=== PATIENT | male | born 1990 | race Caucasian/White ===

== ENCOUNTER 2018-04-09 03:42 | Observation (INO) ==
--- NOTE | 2018-04-09 03:52 | ERNOTE ---
Abdominal HPI - Narrative Date of Service: 04/09/18 - General Chief Complaint: Abdominal Pain Time Seen by Provider: 04/09/18 03:48 Source: patient - Immun/Allergies/Home Medications Immunizatons: IMMUNIZATION HX Immunizations Up to Date Yes Allergies/Adverse Reactions: Allergies No Known Allergies Allergy (Verified 04/09/18 07:39) Home Medications: HOME MEDICATIONS NK [No Home Medication] 04/09/18 [Last Taken Unknown] - History of Present Illness Narrative: Patient is a transfer from [facility] with appendicitis. Patient has been sick for 28 hours. Right lower quadrant abdominal pain. CAT scan was performed which demonstrated 11 mm appendicitis transverse diameter great deal of inflammation cannot rule out perforation. Dr. Covington has asked me to assess the patient and inform him when the patient arrived which I have done so. He is asked me to call in the crew Review of Systems - Review of Systems Constitutional: Present: See HPI, recent illness, fatigue, malaise EYE: Present: no symptoms reported ENT: Present: no symptoms reported Respiratory: Present: no symptoms reported Cardiology: Present: no symptoms reported Gastrointestinal/Abdominal: Present: nausea, abdominal pain, eating less All Other Systems: All systems neg except as marked - Patient's Past Medical History Patient History - Medical: No pertinent hx Patient History - Cardiac/Respiratory: No pertinent hx Patient History - Cancer: No Hx of Cancer Patient History - Surgical Procedures: T & A Patient History - Other: None - Family History Mother Family History - Medical: No pertinent hx Family History - Cardiac/Respiratory: Other Family History - Cancer: No pertinent family hx Father Family History - Medical: No pertinent hx Family History - Cardiac/Respiratory: Hypertension Family History - Cancer: No pertinent family hx Brother Family History - Medical: No pertinent hx Family History - Cardiac/Respiratory: No pertinent hx Family History - Cancer: No pertinent family hx Sister Family History - Medical: No pertinent hx Family History - Cardiac/Respiratory: No pertinent hx Family History - Cancer: No pertinent family hx - Social History Living Situations: home Smoking Status: Never smoker Alcohol Use: occasionally Drug Use: none - Immunizations Immunizations Up to Date: Yes Physical Exam - Physical Exam General Appearance: Present: wd/wn, alert, no apparent distress Head Exam: Present: normal inspection, no evidence of injury Eye Exam: Normal inspection: bilateral, PERRL: bilateral Ears, Nose, Throat: Present: normal ENT inspection, normal pharynx Neck: Present: normal inspection, nontender Respiratory: Present: no respiratory distress, normal breath sounds, lungs clear Cardiovascular/Chest: Present: regular rate, rhythm, no murmur, normal peripheral pulses Gastrointestinal/Abdominal: Present: nondistended, soft, other - patient with rebound and guarding. Significant tenderness at McBurney's point. Positive Ross Cleary Extremity Exam: Present: normal inspection, non-tender, normal range of motion, no edema Neurological Exam: Present: alert, oriented, normal mood/affect, no motor/ sensory deficits Skin Exam: Present: normal color, warm/dry Lymphatic Exam: Present: no adenopathy ED Progress - Vital Signs Patient's Vital Signs:: I have reviewed the patient's vital signs. Vital Signs: Vital Signs 04/09/18 03:43 Temperature 36.7 C Pulse Rate 103 H Respiratory 18 Rate Blood Pressure 131/76 O2 Sat by Pulse 97 Oximetry - Progress/Reassessment Chief Complaint: Abdominal Pain Plan - Plan Plan: Patient is to go to the OR for acute appendicitis Departure Clinical Impression: Acute appendicitis - Departure Disposition: Still a patient Condition: Fair
[2018-04-09] MEDS ORDERED: metroNIDAZOLE/SODIUM CHLORIDE 500 MG/100 ML BAG IV ONE (04:00)
[2018-04-09] MEDS ORDERED: CEFOXITIN SODIUM 2 GM in DEXTROSE 5 % IN WATER 100 ML IV ONE ×2 (04:24)
--- NOTE | 2018-04-09 04:27 | HP ---
Chief Complaint - Chief Complaint Date of Service: 04/09/18 Time of Service: 04:25 Chief Complaint: acute appendicitis History of Present Illness: Presented to ER in [place] with one day hisstory of abdominal pain. RLQ tenderness and CT evidence of appendicitis. No surgeon there, so transferred here for treatment. - Patient's Past Medical History Patient History - Medical: No pertinent hx Patient History - Cardiac/Respiratory: No pertinent hx Patient History - Cancer: No Hx of Cancer Patient History - Surgical Procedures: T & A Patient History - Other: None - Family History Family History:: no untoward family reactions to anesthesia, no familial bleeding tendencies - Family History Mother Family History - Medical: Other - heart transplant - Social History Living Situations: home Smoking Status: Never smoker Alcohol Use: occasionally Drug Use: none - Immunizations Immunizations Up to Date: Yes Review Of Systems (GEN) - Review of Systems Generalized/Overall Review: Present: No Symptoms Reported EENTM: Present: No Symptoms Reported Respiratory: Present: No Symptoms Reported Cardiac: Present: No Symptoms Reported Abdominal: Present: Abdominal Pain. Absent: Nausea, Vomiting Genitourinary: Present: No Symptoms Reported Musculoskeletal: Present: No Symptoms Reported Neurological: Present: No Symptoms Reported Skin: Present: No Symptoms Reported Misc: All systems neg except as marked Allergies/Adverse Reactions: Allergies Allergy/AdvReac Type Severity Reaction Status Date / Time No Known Allergies Allergy Unverified 04/09/18 03:47 Home Medications: HOME MEDICATIONS NK [No Home Medication] 04/09/18 [Last Taken Unknown] Exam - Exam Vital Signs: Vital Signs - Last Taken Temp 36.7 C 04/09/18 03:43 Pulse 107 H 04/09/18 04:17 Resp 18 04/09/18 04:17 BP 139/76 04/09/18 04:17 Pulse Ox 99 04/09/18 04:17 Constitutional: Present: Alert, Oriented x3, Cooperative, Mild distress ENT Exam: Present: normal ENT inspection Eye Exam: bilateral eye: normal inspection Neck: Present: full range of motion, normal inspection Respiratory: Present: lungs clear, normal breath sounds Cardiovascular/Chest: Present: regular rate, rhythm, no murmur Peripheral Pulses: dorsalis-pedis (R): 4+, dorsalis-pedis (L): 4+, radial (R): 4 +, radial (L): 4+ Abdomen: Present: other - tender RLQ Extremity: Present: normal range of motion, no pedal edema, no calf tenderness Skin Exam: Present: normal color Neurologic: Present: radio assembler II-XII nml as tested, normal cerebellar test, no motor/ sensory deficits Appearance: Present: appropriate appearance, appropriate insight, neat Eye contact: Present: cooperative, good eye contact, normal speech Thoughts: Present: normal thought pattern Diagnostic Studies: CT from [place] shows acute appendicitis Assessment/Plan - Assessment/Plan (1) Acute appendicitis Assessment: Discussed appendicitis and its treatment. Risks and possible complications of appendectomy were explained including the expected post op course.After an interactive discussion his questions were answered to his apparent satisfaction and informed consent obtained for appendectomy (laparoscopic or open). SCD's, chlorhesidine wipes, he has received Zosyn in [place] and Flagyl here--- will give Mefoxin to cover around time of surgery. Problem: Acute
[2018-04-09] MEDS ORDERED: RINGER'S SOLUTION,LACTATED 1,000 ML IV ONE (05:00)
[2018-04-09] MEDS ORDERED: BUPIVACAINE HCL/EPINEPHRINE 50 ML VIAL IJ ONE ×2 (05:25)
[2018-04-09] MEDS ORDERED: MUPIROCIN 22 APPL TUBE TP ONE ×2 (05:50→05:58)
[2018-04-09] MEDS ORDERED: RINGER'S SOLUTION,LACTATED 1,000 ML IV PRN (06:33)
[2018-04-09] MEDS ORDERED: oxyCODONE HCL/ACETAMINOPHEN 1 TAB TABLET PO PRN (06:33)
[2018-04-09] MEDS ORDERED: ONDANSETRON HCL/PF 2 MG/ML VIAL IV PRN (06:33)
--- NOTE | 2018-04-09 06:56 | OR ---
Operative Report - Dictated Report Narrative: Date of operation 04/09/2018 Preoperative diagnosis: Acute appendicitis Postoperative diagnosis: Acute suppurative appendicitis Operation: Laparoscopic appendectomy Surgeon: PANKAJ Covington MD Anesthesia: Gen. endotracheal (glide scope assisted) Arjun Joseph CRNA Indications for procedure: The patient is a 27-year-old male who presented to the [facility] emergency room with abdominal pain. He was found to have right lower quadrant tenderness and CT scan evidence of appendicitis. There is no surgeon at that facility so he was transferred here for treatment Findings: Acute suppurative appendicitis. Need for glide scope assisted endotracheal intubation Narrative of procedure: The patient was identified preoperatively, and prior to the administration of anesthetic a multidisciplinary timeout was observed. The patient was placed supine, SCDs were applied, and 2 g of intravenous Mefoxin administered. [place] scope assisted endotracheal intubation was performed and general endotracheal anesthetic was administered. The patient's abdomen was prepped with Betadine solution, and a generous operating field outlined with 4 sterile towels. The remainder the patient was covered with a sterile disposable drape. A transverse infraumbilical skin incision was made, and dissection was carried along the umbilical stalk until the fascia of the linea alba was encountered. This was incised. The peritoneum was elevated and incised to allow entry into the abdomen under direct vision. A Hussan cannula was placed and the abdomen insufflated with CO2. The laparoscopic camera was introduced and the abdomen briefly explored. Those portions of the liver, stomach, small and large intestine visualized appeared normal. Next under direct vision, 2 additional working ports were inserted through separate skin incisions, one in the suprapubic area one in the left lower quadrant. The cecum was retracted revealing an acutely inflamed appendix. The appendix was gradually liberated by blunt dissection and elevated. It was found amenable to transection with a ANDRY stapler. The base of the appendix and majority of the mesoappendix were transected with a ANDRY stapler. The remainder of the mesoappendix was then divided with a second application of the ANDRY stapler. The stump of the appendix was seen to be gas and liquid tight. The mesoappendix appeared hemostatic. The appendix was placed in an Endobag and parked in the right lower quadrant. The right lower quadrant was suctioned clean. The small working ports were then withdrawn under direct vision to ensure entry site hemostasis. The appendix was removed in conjunction with the Hussan cannula. The pneumoperitoneum was allowed to escape, and after receiving a correct sponge needle and instrument count attention was turned to closing the abdomen. The fascia and peritoneum at the umbilicus were approximated with interrupted sutures of #1 Vicryl. Skin incisions were approximated with interrupted vertical mattress sutures of 4-0 nylon. The operative sites were washed and dried. Dressings of Bactroban ointment and large Band-Aids were applied to the small port sites. The umbilical incision was dressed with Bactroban ointment, 2 x 2, large Band-Aid, and Medipore tape. The operative procedure was terminated at this point. There was no measurable blood loss. 0.5% Marcaine with epinephrine was used for local anesthetic infiltration area the appendix was submitted to pathology. The patient tolerated the anesthetic and procedure well without complication and was transferred to the recovery room awake, extubated, and in stable condition. Reviewed and electronically signed
[2018-04-09] MEDS ORDERED: CEFOXITIN SODIUM 1 GM in DEXTROSE 5 % IN WATER 100 ML IV SCH ×2 (11:05)
--- NOTE | 2018-04-09 13:11 | DS ---
(1) Acute appendicitis Problem: Resolved Description of Stay: Had laparoscopic appendectomy for acute appendicitis. VS remained normal, tolerated regular dit and was up without assistance. Dressings dry. Home with f/u apt on 04/17/18 Procedures Performed: see notes below - laparoscopic apppendectomy Discharge Location: Home Disposition: Home self-care Condition: Good Discharge Activity: Activity as tolerated, No Lifting Discharge Diet: General/regular food Problem Oriented Discharge Instructions to Patient/Family: Laparoscopic Appendectomy, Adult, Care After, [id number] Complete Home Medications List: Complete Home Medication List: oxyCODONE HCL/ACETAMINOPHEN [Percocet 5 MG/325 MG] 1 tab PO Q4H PRN 7 Days #28 tablet 04/09/18
[2018-04-09 13:29] VITALS: BP 125/67
== END 2018-04-09 13:45 | disposition home or self-care (01) ==
LOC: ER 03:42 → MS 04:08
PROVIDERS: ADMIT Surgery; ATTEND Surgery
DX: K35.3 Acute appendicitis with localized peritonitis
CPT/HCPCS: 88304; 96361; 96365; 96367; 99283; G0378